=== PATIENT | female | born 1965 | race Caucasian/White ===

== ENCOUNTER → 2017-04-05 | Outpatient (CLI) | payer MEDICARE, OTHER ==
--- NOTE | 2017-04-05 08:18 | WOMENS IMAGING REPORT ---
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 TECHNIQUE: Dynamic and static grayscale images acquired of the abdomen and recorded on PACS. Additional selected color Doppler and spectral images recorded. LIMITATIONS: None. FINDINGS: PANCREAS: The pancreas was not well visualize. The visualized portions of the pancreatic head demonstrated no pancreatic masses. LIVER: Echotexture is coarse with increased echogenicity consistent with fatty infiltration. LIVER VASCULATURE: Normal directional flow of the main portal vein and hepatic veins. GALLBLADDER: Gallbladder was in a contracted state. No gallstones are identified. There is some thickening of the finnegan with apparent gallbladder polyps being identified. ULTRASOUND-DETECTED RITTER'S SIGN: Negative. INTRAHEPATIC DUCTS AND COMMON DUCT: CBD and intrahepatic ducts normal caliber. No filling defects. INFERIOR VENA CAVA: Normal flow. AORTA: No aneurysm. RIGHT KIDNEY: 11.1 cm in length. Normal echogenicity. No solid or suspicious masses. No hydronephrosis. No calcifications. LEFT KIDNEY: 11.6 cm in length. Normal echogenicity. No solid or suspicious masses. No hydronephrosis. No calcifications. SPLEEN:Normal size. No solid masses. PERITONEAL AND PLEURAL SPACES: No ascites or effusions. OTHER: No other significant finding. IMPRESSION: FATTY LIVER. No gallstones are identified. There is some thickening of the gallbladder wall with apparent gallbladder polyps. Other findings as noted above. TECHNICAL DOCUMENTATION: JOB ID: [id number] [employer]- All Rights Reserved <Electronically signed by VAMSI BROWN MD in OV> 04/05/17 0818 [facility]
--- NOTE | 2017-04-05 16:02 | WOMENS IMAGING REPORT ---
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 TECHNIQUE: Standard craniocaudal and mediolateral oblique views of the breast recorded using digital acquisition. LIMITATIONS: None. FINDINGS: BREAST: Right No masses, calcifications or architectural distortion. No areas of suspicion. Read with the assistance of CAD. .[facility] - R2 Cenova Version 1.3 .[facility] - R2 Cenova Version 1.3 .[facility] - R2 Cenova Version 2.4 .[facility] - R2 Cenova Version 2.4 .[facility] - R2 [employer] Version 9.2 IMPRESSION: NORMAL MAMMOGRAM. BIRADS 1. BREAST DENSITY: a. The breasts are almost entirely fatty. BIRAD: 1 NEGATIVE RECOMMENDATION: RECOMMENDATION: ROUTINE SCREENING. COMMENT: The patient has been notified of the results by letter per [place] requirements. Additional no tification policies are in place for contacting patient with suspicious or incomplete findings. Quality ID #225: The [employer] recommends an annual screening mammogram for women aged 40 years or over. This facility utilizes a reminder system to ensure that all patients receive reminder letters, and/or direct phone calls for appointments. This includes reminders for routine scr eening mammograms, diagnostic mammograms, or other Breast Imaging Interventions when appropriate. Th is patient will be placed in the appropriate reminder system. The [employer] (ACR) has developed recommendations for screening MRI of the breast s in certain patient populations, to be used in conjunction with mammography. Breast MRI surveillance may be appropriate for women with more than 20% lifetime risk of developing breast cancer as determi chicho by genetic testing, significant family history of the disease, or history of mantle radiation for Hodgkins Disease. ACR Practice Guidelines 2008. TECHNICAL DOCUMENTATION: FINDING NUMBER: (1) ASSESSMENT: (1) JOB ID: [id number] [employer]- All Rights Reserved
== END ==
LOC: WI 07:20
PROVIDERS: ATTEND Specialist
DX: Z12.31 Encounter for screening mammogram for malignant neoplasm of breast (principal); C50.512 Malignant neoplasm of lower-outer quadrant of left female breast; R10.11 Right upper quadrant pain
CPT/HCPCS: 76700; G0202

== ENCOUNTER 2017-04-10 01:14 | Observation (INO) | payer MEDICARE, OTHER ==
[2017-04-10] MEDS ORDERED: KETOROLAC TROMETHAMINE INJ/PF 30 MG/1 ML SDV IV ONE (01:55)
[2017-04-10] MEDS ORDERED: NORMAL SALINE 1000 ML 1,000 ML IV ONE (01:55)
[2017-04-10] MEDS ORDERED: MORPHINE SULFATE 10 MG/ML INJ IV ONE (01:55)
[2017-04-10] MEDS ORDERED: ONDANSETRON HCL INJ/PF 4 MG/2 ML SDV IV ONE (01:55)
--- NOTE | 2017-04-10 01:58 | ER Document Report ---
ED General - General Chief Complaint: Epigastric pain, nausea Stated Complaint: CHEST PAIN Time Seen by Provider: 04/10/17 01:43 Notes: Patient is a 52-year-old female who comes emergency department for chief complaint of pain in her upper abdomen and 2 episodes of vomiting. Pain started at 10 PM tonight. She states she has had these symptoms intermittently for the past 4 months but tonight was significantly worse. She had an ultrasound outpatient but this has not been resulted yet. She ate salmon for dinner. Past medical history of left mastectomy, orthopedic surgeries, ankylosing spondylitis. She denies alcohol. TRAVEL OUTSIDE OF THE [place] IN LAST 30 DAYS: No - Related Data Allergies/Adverse Reactions: Sulfa (Sulfonamide Antibiotics) Allergy (Mild, Verified 04/10/17 05:32) Past Medical History - General Information source: Patient - Social History Smoking Status: Current Every Day Smoker Frequency of alcohol use: Occasional Lives with: Family Family History: Reviewed & Not Pertinent Renal/ Medical History: Denies: Hx Peritoneal Dialysis Musculoskeltal Medical History: Reports Other - Ankylosing spondylitis Past Surgical History: Reports: Hx Gynecologic Surgery - Tubal ligation, Hx Mastectomy - Left-sided, Hx Orthopedic Surgery - Immunizations Hx Diphtheria, Pertussis, Tetanus Vaccination: Yes Review of Systems - Review of Systems Constitutional: No symptoms reported EENT: No symptoms reported Cardiovascular: No symptoms reported Respiratory: No symptoms reported Gastrointestinal: See HPI Genitourinary: No symptoms reported Female Genitourinary: No symptoms reported Musculoskeletal: No symptoms reported Skin: No symptoms reported Hematologic/Lymphatic: No symptoms reported Neurological/Psychological: No symptoms reported Physical Exam - Vital signs Vitals: Pulse Resp BP Pulse Ox 68 16 115/70 99 04/10/17 05:00 04/10/17 05:00 04/10/17 05:00 04/10/17 05:00 Interpretation: Normal - General General appearance: Alert, Anxious In distress: Mild - Patient appears to be in some pain - HEENT Head: Normocephalic, Atraumatic Eyes: Normal Pupils: PERRL - Respiratory Respiratory status: No respiratory distress Chest status: Nontender Breath sounds: Normal Chest palpation: Normal - Cardiovascular Rhythm: Regular. No: Tachycardia Heart sounds: Normal auscultation, S1 appreciated, S2 appreciated Murmur: No - Abdominal Inspection: Normal Distension: No distension Bowel sounds: Normal Tenderness: Tender - Very tender in the right upper quadrant with positive Whitaker sign and guarding, there is also epigastric pain, remaining abdomen is benign Organomegaly: No organomegaly - Back Back: Normal, Nontender. No: Tender - Extremities General upper extremity: Normal inspection, Nontender, Normal color, Normal ROM , Normal temperature General lower extremity: Normal inspection, Nontender, Normal color, Normal ROM , Normal temperature, Normal weight bearing. 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 However patient has symptoms and examination concerning for acute cholecystitis. Ultrasound was performed, shows gallbladder sludge, trace pericholecystic fluid and some wall thickening. No obstructive abnormality. Patient is much more comfortable after medications. Discussed with Micaela. 04/10/17 04:[address] Zapata, surgeon donor relations coordinator, he will evaluate the patient. Patient will be admitted to the surgical floor, given Unasyn, patient has been kept n.p.o., continuing IV fluids. Patient states understanding and agreement. - Vital Signs Vital signs: Temp Pulse Resp BP Pulse Ox 68 16 115/70 99 04/10/17 05:00 04/10/17 05:00 04/10/17 05:00 04/10/17 05:00 - Laboratory Result Diagrams: 04/10/17 03:35 04/10/17 03:35 Laboratory results interpreted by me: 04/10/17 04/10/17 04/10/17 02:40 03:35 03:35 Hgb 11.4 L Hct 34.2 L RDW 17.0 H Plt Count 144 L Chloride 114 H Carbon Dioxide 20 L BUN 26 H Total Protein 5.5 L Albumin 3.1 L Urine Ketones 20 H Urine Blood SMALL H Discharge - Discharge Clinical Impression: Cholecystitis, Upper abdominal pain Vomiting Qualifiers: Vomiting type: unspecified Vomiting Intractability: non-intractable Nausea presence: with nausea Qualified Code(s): R11.2 - Nausea with vomiting, unspecified Condition: Stable Disposition: ADMITTED INPATIENT Admitting Provider: Surgicalist Unit Admitted: Surgical Floor
[2017-04-10 03:47] LABS: AMORPHOUS SEDIMENT,URINE TRACE /HPF; APPEARANCE,URINE SLIGHTLY-CLOUDY; BILIRUBIN,URINE NEGATIVE (NEGATIVE); GLUCOSE, URINE NEGATIVE (NEGATIVE); KETONES,URINE 20 mg/dL (NEGATIVE); LEUKOCYTE ESTERASE,URINE NEGATIVE (NEGATIVE); NITRITE,URINE NEGATIVE (NEGATIVE); PROTEIN,URINE NEGATIVE (NEGATIVE); URINE SPECIFIC GRAVITY 1.018; UROBILINOGEN,URINE NEGATIVE mg/dL (<2.0)
[2017-04-10 03:53] LABS: ABSOLUTE EOSINOPHILS # (AUTO) 0.2 10^3/uL (0.0-0.6); ABSOLUTE LYMPHOCYTES (AUTO) 1.3 10^3/uL (0.5-4.7); ABSOLUTE MONOCYTES (AUTO) 0.4 10^3/uL (0.1-1.4); ABSOLUTE NEUT (AUTO) 4.4 10^3/uL (1.7-8.2); BASOPHILS % (AUTO) 0.6 % (0-2); EOSINOPHILS % (AUTO) 2.8 % (0-6); HEMATOCRIT 34.2 % (36.0-47.0); HEMOGLOBIN 11.4 g/dL (12.0-15.5); LYMPHOCYTES % (AUTO) 20.2 % (13-45); MEAN CORPUSCULAR HGB CONC 33.3 g/dL (32.0-36.0); MEAN CORPUSCULAR VOLUME 84 fl (80-97); MONOCYTES % (AUTO) 6.8 % (3-13); RED BLOOD COUNT 4.07 10^6/uL (3.72-5.28); SEGMENTED NEUTROPHILS % (AUTO) 69.6 % (42-78); WHITE BLOOD COUNT 6.3 10^3/uL (4.0-10.5)
--- NOTE | 2017-04-10 03:57 | RADIOLOGY REPORT (SQ) ---
EXAM DESCRIPTION: U/S ABDOMEN LIMITED W/O DOP COMPLETED DATE/TIME: 04/10/2017 3:29 am REASON FOR STUDY: RUQ and epigastric pain,vomiting COMPARISON: Abdominal ultrasound 04/05/2017. TECHNIQUE: Dynamic and static grayscale images acquired of the right upper quadrant and recorded on PACS. Additional selected color Doppler and spectral images recorded. LIMITATIONS: Study limited due to acoustical interference from fat or from air in the bowel. FINDINGS: PANCREAS: Obscured by overlying bowel gas. LIVER: Measures 15 cm. Echotexture is coarse with increased echogenicity consistent with fatty infil tration. LIVER VASCULATURE: Normal directional flow of the main portal vein. GALLBLADDER: Echogenic mobile focus, nonshadowing, suggestive of sludge. There is mild gallbladder w all thickening to 3.7 mm. There is trace pericholecystic fluid. ULTRASOUND-DETECTED RITTER'S SIGN: The patient was given pain medication prior to the exam. INTRAHEPATIC DUCTS AND COMMON DUCT: CBD and intrahepatic ducts normal caliber. INFERIOR VENA CAVA: Not well visualized. AORTA: No aneurysm in the visualized proximal and mid abdominal aorta. The distal abdominal aorta wa s obscured by overlying bowel gas. RIGHT KIDNEY: Measures 11.6 cm in length. Normal echogenicity. No hydronephrosis. No calcificat ions. PERITONEAL CAVITY AND RIGHT PLEURAL SPACE: No ascites or effusion. IMPRESSION: Gallbladder sludge. Mild gallbladder wall thickening and trace pericholecystic fluid, n onspecific. If clinical concern persists for acute or chronic cholecystitis, evaluation with hepatob iliary scan can be obtained. Fatty infiltration of the liver. TECHNICAL DOCUMENTATION: JOB ID: [id number] [place]-[id number] [employer])- All Rights Reserved
[2017-04-10 04:07] LABS: ALANINE AMINOTRANSFERASE 28 U/L (9-52); ALBUMIN 3.1 g/dL (3.5-5.0); ALKALINE PHOSPHATASE 84 U/L (38-126); ANION GAP 7 (5-19); ASPARTATE AMINO TRANSFERASE 15 U/L (14-36); BILIRUBIN,DIRECT 0.3 mg/dL (0.0-0.4); BILIRUBIN,TOTAL 0.3 mg/dL (0.2-1.3); BLOOD UREA NITROGEN 26 mg/dL (7-20); CALCIUM 8.4 mg/dL (8.4-10.2); CARBON DIOXIDE 20 mmol/L (22-30); CHLORIDE 114 mmol/L (98-107); CREATININE RESULT 0.71 mg/dL (0.52-1.25); GLUCOSE 86 mg/dL (75-110); LIPASE 116.4 U/L (23-300); POTASSIUM 3.8 mmol/L (3.6-5.0); SODIUM 141.1 mmol/L (137-145); TOTAL PROTEIN 5.5 g/dL (6.3-8.2)
[2017-04-10] MEDS ORDERED: AMPICILLIN SOD/SULBACTAM 3 GM VIAL IV ONE (04:15)
[2017-04-10] MEDS ORDERED: NORMAL SALINE 1000 ML 1,000 ML IV PRN ×2 (04:16→12:29)
[2017-04-10] MEDS ORDERED: NICOTINE 14 MG/24 HR PATCH.TD24 TD ONE (04:19)
--- NOTE | 2017-04-10 04:57 | PDOC H&P ---
History of Present Illness Admission Date/PCP: EDWIN HESTER MD Patient complains of: episodes of right upper quadrant pain History of Present Illness: MELISSA ARREDONDO is a 52 year old female with hx of HTN, anchilosing dpondylitis , migraine who come to the Er with a c/o of 4 months of epigastric and right uppr quadrant pain, nausea, vomit x 2 tonight. Work-up done in the ER today shows a liver US with sludge and her physical exam is significant for right upper quadrant pain. Past Medical History Cardiac Medical History: Reports: Hypertension Neurological Medical History: Reports: Migraine Musculoskeltal Medical History: Reports: Other - anchilosing spondylitis Past Surgical History Past Surgical History: Reports: Appendectomy, Mastectomy - LEFT, Orthopedic Surgery - R ARM, Tonsillectomy Social History Smoking Status: Current Every Day Smoker Family History Parental Family History Reviewed: Yes - negative Children Family History Reviewed: Unknown Sibling(s) Family History Reviewed.: Yes - negative Physical Exam Vital Signs: Intake & Output 04/08/17 04/09/17 04/10/17 06:59 06:59 06:59 Weight 10 kg General appearance: PRESENT: no acute distress Head exam: PRESENT: atraumatic Respiratory exam: PRESENT: clear to auscultation patricia, other - left mastectomy Cardiovascular exam: PRESENT: RRR GI/Abdominal exam: PRESENT: Whitaker's sign, soft, tenderness - right upper quadrant Musculoskeletal exam: PRESENT: full ROM Neurological exam: PRESENT: alert Results Laboratory Results: 04/10/17 03:35 04/10/17 03:35 04/10/17 04/10/17 04/10/17 02:40 03:35 03:35 WBC 6.3 RBC 4.07 Hgb 11.4 L Hct 34.2 L MCV 84 MCH 28.0 MCHC 33.3 RDW 17.0 H Plt Count 144 L Seg Neutrophils % 69.6 Lymphocytes % 20.2 Monocytes % 6.8 Eosinophils % 2.8 Basophils % 0.6 Absolute Neutrophils 4.4 Absolute Lymphocytes 1.3 Absolute Monocytes 0.4 Absolute Eosinophils 0.2 Absolute Basophils 0.0 Sodium 141.1 Potassium 3.8 Chloride 114 H Carbon Dioxide 20 L Anion Gap 7 BUN 26 H Creatinine 0.71 Est GFR ( Amer) > 60 Est GFR (Non-Af Amer) > 60 Glucose 86 Calcium 8.4 Total Bilirubin 0.3 AST 15 ALT 28 Alkaline Phosphatase 84 Total Protein 5.5 L Albumin 3.1 L Lipase 116.4 Urine Color YELLOW Urine Appearance SLIGHTLY-CLOUDY Urine pH 6.0 Ur Specific [place] 1.018 Urine Protein NEGATIVE Urine Glucose (UA) NEGATIVE Urine Ketones 20 H Urine Blood SMALL H Urine Nitrite NEGATIVE Ur Leukocyte Esterase NEGATIVE Urine WBC (Auto) 1 Urine RBC (Auto) 4 Impressions: Abdomen Ultrasound 04/10/17 01:55 IMPRESSION: Gallbladder sludge. Mild gallbladder wall thickening and trace pericholecystic fluid, nonspecific. If clinical concern persists for acute or chronic cholecystitis, evaluation with hepatobiliary scan can be obtained. Fatty infiltration of the liver. Assessment & Plan - Plan Summary Plan Summary: Assessment: Right upper quadrant abdominal pain with nausea, emesis US GB significant for sludge and thickening o gallbladder wall Physical exam significant for RUQ pain Blood work normal Plan: Admit NPO IV fluids Pain control Plan laparoscopic appendectomy, possible open, possible cholangiogram Procedure, risks, benefits, complications including bleeding from the liver and or injury of the common bile duct requiring transfer to a tertiary center for open repair has been explained to the patient, she understands all the above, and decides to proceed.
[2017-04-10] MEDS ORDERED: NORMAL SALINE 1,000 ML IV PRN (06:44)
[2017-04-10] MEDS ORDERED: GLUCAGON,HUMAN RECOMB 1 MG INJ SUBCUT PRN (06:44)
[2017-04-10] MEDS ORDERED: DEXTROSE 50%-WATER 25 GM/50 ML DISP.SYRIN IV PRN ×2 (06:44)
[2017-04-10] MEDS ORDERED: ONDANSETRON HCL INJ/PF 4 MG/2 ML SDV IV PRN ×2 (06:44→10:10)
[2017-04-10] MEDS ORDERED: DEXTROSE 40% GEL 15 GM TUBE PO PRN ×2 (06:44)
[2017-04-10] MEDS ORDERED: MORPHINE SULFATE 10 MG/ML INJ IV PRN ×2 (06:44→10:10)
[2017-04-10] MEDS ORDERED: BUPIVACAINE HCL 0.5%-EPI 1:200000 INJ/PF 30 ML VIAL ONE (06:59)
[2017-04-10] MEDS ORDERED: LIDOCAINE 1% INJ-PF (10 MG/ML) 30 ML SDV ONE (06:59)
[2017-04-10] MEDS ORDERED: FENTANYL CITRATE INJ/PF 250 MCG/5 ML AMPULE ONE (09:18)
[2017-04-10] MEDS ORDERED: MIDAZOLAM 2 MG/2 ML INJ ONE (09:18)
[2017-04-10] MEDS ORDERED: DEXAMETHASONE SOD PHOSPHATE INJ 4 MG/1 ML VIAL ONE (09:18)
[2017-04-10] MEDS ORDERED: ONDANSETRON HCL INJ/PF 4 MG/2 ML SDV ONE ×2 (09:18→13:06)
[2017-04-10] MEDS ORDERED: LIDOCAINE 2% INJ-PF (20 MG/ML) 10 ML AMPUL ONE (09:18)
[2017-04-10] MEDS ORDERED: PROPOFOL INJ 200 MG/20 ML VIAL IV ONE (09:19)
[2017-04-10] MEDS ORDERED: ACETAMINOPHEN 100 ML IV ONE (09:19)
[2017-04-10] MEDS ORDERED: CEFOXITIN 1 GM/D5W RTU 1 GM/50 ML RTUPB IV SCH (10:00)
[2017-04-10] MEDS ORDERED: PROMETHAZINE HCL INJ 25 MG/1 ML VIAL IV PRN ×2 (10:10)
[2017-04-10] MEDS ORDERED: DIPHENHYDRAMINE HCL 50 MG/ML VIAL IV PRN (10:10)
[2017-04-10] MEDS ORDERED: OXYCODONE-ACETAMINOPHEN 5-325 MG TABLET PO PRN ×2 (10:10)
[2017-04-10] MEDS ORDERED: FENTANYL CITRATE INJ/PF 100 MCG/2 ML AMPUL IV PRN ×3 (10:10)
[2017-04-10] MEDS ORDERED: MEPERIDINE HCL/PF INJ 25 MG/1 ML DISP.SYRIN IV PRN (10:10)
[2017-04-10] MEDS: FENTANYL CITRATE INJ/PF 100 MCG/2 ML AMPUL ONE ×2 (12:18→12:23)
--- NOTE | 2017-04-10 12:29 | Operative Report ---
Operative Report DATE OF SURGERY: 04/10/17 Operative Report: Laparoscopic cholecystectomy PREOPERATIVE DIAGNOSIS: Symptomatic cholelithiasis. Cholecystitis POSTOPERATIVE DIAGNOSIS: Symptomatic cholelithiasis. Chronic cholecystitis OPERATION: laparoscopic cholecystectomy SURGEON: KARLIE VERONICA ANESTHESIA: Local TISSUE REMOVED OR ALTERED: gallbladder COMPLICATIONS: none ESTIMATED BLOOD LOSS: 120 mL INTRAOPERATIVE FINDINGS: chronic cholecystitis PROCEDURE: see dictation
--- NOTE | 2017-04-10 12:51 | OPERATIVE REPORT E ---
Operative Report NAME: MELISSA ARREDONDO : 1965 AGE: 52Y DATE OF SURGERY: 04/10/2017 ROOM: 431 PREOPERATIVE DIAGNOSIS: Acute appendicitis. POSTOPERATIVE DIAGNOSES: 1. Normal appendix. 2. Dermoid cyst of the right ovary. PROCEDURES: 1. Laparoscopic appendectomy. 2. Diagnostic laparoscopy. SURGEON: KARLIE VERONICA M.D. SENIOR CONTRACTS ADMINISTRATOR: Dr. Bond from [facility]. COMPLICATIONS: None. ANESTHESIA: General. FLUIDS: 1200. BLOOD LOSS: Negligible, less than 10 mL. COMPLICATIONS: None. DRAINS: None. URINE OUTPUT: Monitored. INDICATION AND FINDINGS: This is a healthy 52-year-old female with a DICTATING PHYSICIAN: KARLIE VERONICA M.D. [id number] PHY#: [id number] ID: [id number] JOB#: [id number] ACCT: [id number] cc:KARLIE VERONICA M.D. > MTDD
[2017-04-10] MEDS: MORPHINE SULFATE 10 MG/ML INJ IV PRN ×3 (13:50→22:17)
--- NOTE | 2017-04-10 13:58 | OPERATIVE REPORT E ---
Operative Report NAME: MELISSA ARREDONDO : 1965 AGE: 52Y DATE OF SURGERY: 04/10/2017 ROOM: 431 PREOPERATIVE DIAGNOSES: 1. Symptomatic cholelithiasis. 2. Right upper quadrant pain. 3. Cholecystitis. POSTOPERATIVE DIAGNOSES: 1. Symptomatic cholelithiasis. 2. Right upper quadrant pain. 3. Chronic cholecystitis. PROCEDURE: 1. Laparoscopic cholecystectomy. SURGEON: KARLIE VERONICA M.D. COMMUNITY SERVICE AIDE: None. BLEEDIN mL. FLUIDS: 1500. COMPLICATIONS: None. ANESTHESIA: General plus 30 mL of 0.25% Marcaine with epinephrine. DRAINS: One 2 mm Mickey drain. URINE OUTPUT: Not monitored. INDICATIONS AND FINDINGS: This is a 52-year-old female who presented to the emergency room with a history of right upper quadrant pain, intense nausea and emesis. An ultrasound was found to reveal the presence of gallbladder sludge and thickening of the gallbladder wall. The decision was made to take the patient to surgery for laparoscopic cholecystectomy, possible open, possible cholangiogram. The procedure, risks, benefits, and complications were explained to the patient. She understood all the above, including possible bleeding from the liver and/or injury to the common bile duct which may require transfer to a tertiary center for repair. She understands all the above, her questions answered, and she decided to proceed. DESCRIPTION OF PROCEDURE: The patient was taken to the operating room. The patient was positioned in a supine position. General anesthesia was induced by endotracheal intubation. Abdomen prepped and draped in the usual fashion. An incision was made just above the umbilicus. The peritoneal cavity was entered. We examined with the port, an Optiview adapter and 5-mm scope. The CO2 pneumoperitoneum was then obtained. Under direct visualization an 11-mm port and two 5-mm ports were placed in the epigastrium and right upper quadrant. The gallbladder was identified, elevated and retroflexed. The gallbladder neck was then grasped, pulled anterior toward the patient's right to expose the triangle of Calot. The hook cautery was then utilized to divide the peritoneal attachments medially and laterally off the gallbladder neck so as to disconnect this from the gallbladder fossa. The dissection of the peritoneum was then continued along the cystic neck and cystic duct so as to evaluate and identify the cystic duct and the cystic artery. The cystic duct was then doubly clipped proximally and distally and divided with scissors. The cystic artery was identified, doubly clipped proximally and distally, and divided with scissors. However, following this a small amount of bleeding was noted from the proximal stump of the cystic artery and from the liver itself, and clips were applied to stop the bleeding, which was then controlled. The gallbladder was then dissected from the liver bed with a hook cautery and extracted from the peritoneal cavity with an Endobag. The CO2 pneumoperitoneum was re-established. Upon examination of the liver bed, 2 bleeders from the liver bed were identified, and these were cauterized with Bovie at high settings. In addition, a fair amount of blood was noted around the liver coming from the more distal part of the gallbladder fossa at the level of the hilum of the liver, and active bleeding was then noted. This was controlled initially by the application of a sponge and then the blood clot was suctioned enough to the extent that the bleeding was clearly identified and was controlled with the application of 5-mm clips. The area was then irrigated multiple times until no active bleeding was noted. Following this, 10 mL of FloSeal were applied to the area of bleeding as well as 2 large pieces of Surgicel. A 10-mm drain was inserted through the epigastric port, inserted from the right upper quadrant port site and placed in the gallbladder fossa and secured to the skin with a 2-0 nylon suture. A fascial closure device was then utilized to place a [id number] 0-Vicryl sutures to close the umbilical fascial defect, the suture was left untied. The area of the cystic artery stump was then examined again after 10 minutes with no active bleeding noted. At this point all instruments were removed. The CO2 pneumoperitoneum was released. The fascial defect at the umbilicus was closed with the [id number] 0-Vicryl suture previously placed. The skin incisions were closed with 4-0 Vicryl sutures subcuticular and Dermabond applied. The patient tolerated the procedure well, extubated, transferred to the recovery room in satisfactory condition. DICTATING PHYSICIAN: KARLIE VERONICA M.D. [id number] PHY#: [id number] ID: [id number] JOB#: [id number] ACCT: [id number] cc:KARLIE VERONICA M.D. > [facility]PITALJason
[2017-04-10] MEDS ORDERED: CEFOXITIN INJ 1 GM VIAL IV SCH (14:00)
[2017-04-10] MEDS ORDERED: NEOSTIGMINE METHYLSULFATE 10 MG/10 ML VIAL ONE (14:41)
[2017-04-10] MEDS ORDERED: GLYCOPYRROLATE INJ 0.4 MG/2 ML VIAL ONE (14:41)
[2017-04-10] MEDS ORDERED: SUCCINYLCHOLINE CHLORIDE INJ 200 MG/10 ML VIAL ONE (14:41)
[2017-04-10] MEDS ORDERED: VECURONIUM BROMIDE INJ 10 MG VIAL IV ONE (14:41)
[2017-04-10] MEDS: ONDANSETRON HCL INJ/PF 4 MG/2 ML SDV IV PRN (17:37)
[2017-04-10] MEDS ORDERED: PANTOPRAZOLE SODIUM 40 MG VIAL IV SCH (18:00)
[2017-04-10] MEDS: WATER IV SCH (18:33)
[2017-04-10] MEDS: DEXTROSE 5% IV SCH (18:33)
[2017-04-10] MEDS: CEFOXITIN SODIUM IV SCH (18:33)
[2017-04-11] MEDS: MORPHINE SULFATE 10 MG/ML INJ IV PRN ×3 (00:38→06:37)
[2017-04-11] MEDS: WATER IV SCH ×2 (02:41→13:09)
[2017-04-11] MEDS: CEFOXITIN SODIUM IV SCH ×2 (02:41→13:09)
[2017-04-11] MEDS: DEXTROSE 5% IV SCH ×2 (02:41→13:09)
[2017-04-11 05:41] LABS: ABSOLUTE LYMPHOCYTES (AUTO) 1.6 10^3/uL (0.5-4.7); ABSOLUTE MONOCYTES (AUTO) 0.8 10^3/uL (0.1-1.4); ABSOLUTE NEUT (AUTO) 10.3 10^3/uL (1.7-8.2); BASOPHILS % (AUTO) 0.3 % (0-2); EOSINOPHILS % (AUTO) 0.2 % (0-6); HEMOGLOBIN 12.9 g/dL (12.0-15.5); HGB HCT DIFFERENCE -0.3; LYMPHOCYTES % (AUTO) 12.3 % (13-45); MEAN CORPUSCULAR VOLUME 85 fl (80-97); RED CELL DISTRIBUTION WIDTH 17.3 % (11.5-14.0); SEGMENTED NEUTROPHILS % (AUTO) 81.2 % (42-78); WHITE BLOOD COUNT 12.6 10^3/uL (4.0-10.5)
[2017-04-11 06:01] LABS: ALANINE AMINOTRANSFERASE 50 U/L (9-52); ALBUMIN 4.1 g/dL (3.5-5.0); ALKALINE PHOSPHATASE 119 U/L (38-126); ANION GAP 11 (5-19); ASPARTATE AMINO TRANSFERASE 48 U/L (14-36); BILIRUBIN,DIRECT 0.4 mg/dL (0.0-0.4); BILIRUBIN,TOTAL 0.6 mg/dL (0.2-1.3); BLOOD UREA NITROGEN 13 mg/dL (7-20); CALCIUM 9.3 mg/dL (8.4-10.2); CARBON DIOXIDE 19 mmol/L (22-30); CHLORIDE 112 mmol/L (98-107); CREATININE RESULT 0.69 mg/dL (0.52-1.25); GLUCOSE 100 mg/dL (75-110); POTASSIUM 4.6 mmol/L (3.6-5.0)
[2017-04-11 08:00] VITALS: BP 115/59
[2017-04-11] MEDS: ONDANSETRON HCL INJ/PF 4 MG/2 ML SDV IV PRN (08:54)
--- NOTE | 2017-04-11 11:32 | PDOC PROGRESS REPORT ---
Subjective Progress Note for:: 04/11/17 Subjective:: patient comfortable, tolerating po well, minimal incisional pain Physical Exam Vital Signs: Temp Pulse Resp BP Pulse Ox 98.1 F 69 16 115/59 L 98 04/11/17 08:00 04/11/17 08:00 04/11/17 08:00 04/11/17 08:00 04/11/17 08:00 Intake & Output 04/10/17 04/11/17 04/12/17 06:59 06:59 06:59 Intake Total 7830 Output Total 4970 Balance 2860 Weight 104.3 kg Respiratory exam: PRESENT: clear to auscultation patricia Cardiovascular exam: PRESENT: RRR GI/Abdominal exam: PRESENT: normal bowel sounds - incisin clean, dry, intact; SERAFIN in the right upper quadrant with serosanguionous fluid, soft Results Laboratory Results: 04/11/17 04:58 04/11/17 04:58 04/11/17 04/11/17 04:58 04:58 WBC 12.6 H RBC 4.60 Hgb 12.9 Hct 39.0 MCV 85 MCH 28.0 MCHC 33.0 RDW 17.3 H Plt Count 203 Seg Neutrophils % 81.2 H Lymphocytes % 12.3 L Monocytes % 6.0 Eosinophils % 0.2 Basophils % 0.3 Absolute Neutrophils 10.3 H Absolute Lymphocytes 1.6 Absolute Monocytes 0.8 Absolute Eosinophils 0.0 Absolute Basophils 0.0 Sodium 142.0 Potassium 4.6 Chloride 112 H Carbon Dioxide 19 L Anion Gap 11 BUN 13 Creatinine 0.69 Est GFR ( Amer) > 60 Est GFR (Non-Af Amer) > 60 Glucose 100 Calcium 9.3 Total Bilirubin 0.6 AST 48 H ALT 50 Alkaline Phosphatase 119 Total Protein 7.0 Albumin 4.1 Impressions: Abdomen Ultrasound 04/10/17 01:55 IMPRESSION: Gallbladder sludge. Mild gallbladder wall thickening and trace pericholecystic fluid, nonspecific. If clinical concern persists for acute or chronic cholecystitis, evaluation with hepatobiliary scan can be obtained. Fatty infiltration of the liver. Assessment & Plan - Plan Summary Plan Summary: A/ POD #1 after laparoscopic cholecystectomy secondary to chronic cholecystitis with cholelithiasis Vital sign stable SERAFIN output 10 cc overnight blood work (CBC and CMP) normal Patient tolerating po well Physical exam unremarkable P/ Remove SERAFIN drain today Discharge to home today f/u in the Surgery Clinic within 1 week can shower in AM 04/12/17, bathe in 2 weeks regular diet activities as tolerated no would care needed Tylenol / Aleve prn for pain
--- NOTE | 2017-04-11 12:54 | DISCHARGE SUMMARY E ---
Discharge Summary NAME: MELISSA ARREDONDO : 1965 AGE: 52Y ADMITTED: 04/10/2017 DISCHARGED: 04/11/2017 FINAL DIAGNOSES: 1. Right upper quadrant pain. 2. Epigastric pain. 3. Chronic cholecystitis secondary to cholelithiasis. 4. Ankylosing spondylitis. 5. Hypertension. 6. Migraines. PROCEDURE: On April 10, 2017, the patient underwent laparoscopic cholecystectomy. COMPLICATIONS: None. HOSPITAL COURSE: This is a 52-year-old obese female with a history of seizures and ankylosing spondylitis as well as hypertension who presented to the emergency room with a history of right upper quadrant pain and epigastric pain. Workup was done and revealed the patient had cholelithiasis and thickening of the gallbladder wall on US. The patient was therefore taken to surgery the same day. She underwent laparoscopic cholecystectomy. Procedure was uneventful. The patient was then transferred to the third floor. During the hospitalization the vital signs remained stable and her diet was advanced to regular. On day of discharge the patient had minimal complaints. No nausea or vomiting, her blood work within normal limits including CBC and a complete metabolic profile. On physical exam, the abdomen was soft. The wound incision was clean, dry and intact. The patient had a Tao Benton drain which drained only 10 mL overnight and was removed on the morning of discharge. The patient has a followup appointment in the office in about a week. She was instructed to shower the following day on April 12 and to bathe only 2 weeks after surgery. She was instructed to follow regular diet, activity as tolerated, no wound care needed. She was instructed to resume all of her home medications. The patient was given Tylenol and Aleve p.r.n. for pain. DICTATING PHYSICIAN: KARLIE VERONICA M.D. [id number] PHY#: [id number] ID: [id number] JOB#: [id number] ACCT: [id number] cc:Andrea BECKER PA > MTDD
[2017-04-11] MEDS ORDERED: LISINOPRIL 10 MG TABLET PO ONE (13:00)
[2017-04-11] MEDS ORDERED: PRENATAL VITAMIN W-O CA NO5/FE FUMARATE/FA CAPSULE PO ONE (13:00)
[2017-04-11] MEDS ORDERED: OXYCODONE HCL IR 5 MG TABLET PO SCH (18:00)
[2017-04-11] MEDS ORDERED: (PENDING PHARMACY ID) (Sulindac [Sulindac] 150 MG) PO SCH (18:00)
[2017-04-11] MEDS ORDERED: CLONAZEPAM 1 MG TABLET PO SCH (18:00)
[2017-04-11] MEDS ORDERED: TIZANIDINE HCL 4 MG TABLET PO SCH (18:00)
[2017-04-11] MEDS ORDERED: TOPIRAMATE 25 MG TABLET PO SCH (22:00)
[2017-04-12] MEDS ORDERED: [UNRECOGNIZED DRUG - REMARK] PO SCH (10:00)
[2017-04-12] MEDS ORDERED: (PENDING PHARMACY ID) (Lisinopril [Zestril] 20 MG) PO SCH (10:00)
[2017-04-12] MEDS ORDERED: PRENATAL VITAMIN W-O CA NO5/FE FUMARATE/FA CAPSULE PO SCH (10:00)
[2017-04-12] MEDS ORDERED: LISINOPRIL 10 MG TABLET PO SCH (10:00)
== END 2017-04-11 12:00 | disposition home or self-care (01) ==
LOC: ER 01:14 → UNDOADMIN 05:06 → EH 05:06 → INTOOBSV 06:44 → 4S 06:44 → EH 07:33 → 4S 07:33
PROVIDERS: ATTEND Surgery
PROC: 0FT44ZZ Resection of Gallbladder, Percutaneous Endoscopic Approach (ICD-10-PCS; principal; 2017-04-10 09:15)
DX: R10.11 Right upper quadrant pain (principal); R10.13 Epigastric pain; K81.1 Chronic cholecystitis; M45.9 Ankylosing spondylitis of unspecified sites in spine; G43.909 Migraine, unspecified, not intractable, without status migrainosus; I10 Essential (primary) hypertension; E66.9 Obesity, unspecified; F17.200 Nicotine dependence, unspecified, uncomplicated; K76.0 Fatty (change of) liver, not elsewhere classified; Z90.49 Acquired absence of other specified parts of digestive tract; Z68.35 Body mass index [BMI] 35.0-35.9, adult
CPT/HCPCS: 47562; 99285; 96361; 96374; 96375; 36415 ×2; 87040; 83690; 85025 ×2; 81025; 80053 ×2; 81001; 88304 ×2; 76705; G0378 ×3; J2250; J3490 ×4; J1100; J0694 ×2; J3010 ×2; J0295; J1885; J2270 ×2; C9113; J0330; J2405 ×2; J7030; J2704; J0131; 790; S0164

== ENCOUNTER → 2018-05-02 | Outpatient (CLI) | payer MEDICARE ==
--- NOTE | 2018-05-02 16:42 | WOMENS IMAGING REPORT ---
EXAM DESCRIPTION: 3D SCREENING MAMMO RIGHT COMPLETED DATE/TIME: 05/02/2018 10:25 am REASON FOR STUDY: SCREENING MAMMO Z12.31 ENCNTR SCREEN MAMMOGRAM FOR MALIGNANT NEOPLASM OF FLAKO COMPARISON: 2017 TECHNIQUE: Standard craniocaudal and mediolateral oblique views of the breast recorded using digital acquisition and breast tomosynthesis. LIMITATIONS: None. FINDINGS: BREAST: right No masses, calcifications or architectural distortion. No areas of suspicion. Read with the assistance of CAD. .[facility] - R2 Cenova Version 1.3 .[facility] Imaging - R2 Cenova Version 1.3 .[facility] Imaging - R2 Cenova Version 2.4 .[facility] - R2 Cenova Version 2.4 .[facility] - R2 Microelectronics Engineer Version 9.2 IMPRESSION: NORMAL MAMMOGRAM. BIRADS 1. BREAST DENSITY: b. There are scattered areas of fibroglandular density. BIRAD: 1 Negative RECOMMENDATION: RECOMMENDATION: ROUTINE SCREENING. COMMENT: The patient has been notified of the results by letter per SA requirements. Additional no tification policies are in place for contacting patient with suspicious or incomplete findings. Quality ID #[id number]: The [employer] recommends an annual screening mammogram for women aged 40 years or over. This facility utilizes a reminder system to ensure that all patients receive reminder letters, and/or direct phone calls for appointments. This includes reminders for routine scr eening mammograms, diagnostic mammograms, or other Breast Imaging Interventions when appropriate. Th is patient will be placed in the appropriate reminder system. The [employer] (ACR) has developed recommendations for screening MRI of the breast s in certain patient populations, to be used in conjunction with mammography. Breast MRI surveillance may be appropriate for women with more than 20% lifetime risk of developing breast cancer as determi chicho by genetic testing, significant family history of the disease, or history of mantle radiation for Hodgkins Disease. ACR Practice Guidelines 2008. DBT Technology DBT is a type of tomographic mammography. With conventional mammography, overlapping breast tissue ma y make lesions difficult to detect, even with good compression. DBT uses an x-ray tube that rotates a round the breast, taking images at different angles. These images are then combined to create thin sl ices of the breast that the radiologist can view as a 3D reconstruction. The [employer] unit can perform full-field digital mammograms (2D imaging); or DBT (3D imaging); or both, in a combination mode that quickly performs both the mammogram and the tomosynthesis scan while the breast is still compressed. PQRS 6045F: Fluoroscopic imaging is not utilized for breast tomosynthesis. TECHNICAL DOCUMENTATION: FINDING NUMBER: (1) ASSESSMENT: (1) JOB ID: [id number] [employer]- All Rights Reserved Reading location - IP/workstation name: [facility]
== END ==
LOC: WI 10:05
PROVIDERS: ATTEND Internal Medicine Hematology & Oncology
DX: Z12.31 Encounter for screening mammogram for malignant neoplasm of breast (principal)

== ENCOUNTER → 2019-09-05 | Outpatient (CLI) | payer MEDICARE ==
--- NOTE | 2019-09-05 11:37 | WOMENS IMAGING REPORT ---
EXAM DESCRIPTION: 3D SCREENING MAMMO RIGHT COMPLETED DATE/TIME: 09/05/2019 11:17 am REASON FOR STUDY: Z12.31 SCREENING MAMMO Z12.31 ENCNTR SCREEN MAMMOGRAM FOR MALIGNANT NEOPLASM OF B RE COMPARISON: 2017 EXAM PARAMETERS: Standard craniocaudal and mediolateral oblique views of the breast recorded using d igital acquisition and breast tomosynthesis. Read with the assistance of CAD. .[facility] - mktg Storage Administrator Version 9.2 LIMITATIONS: None. FINDINGS: BREAST LATERALITY: right No suspicious masses, suspicious calcifications or architectural distortion. No areas of concern. IMPRESSION: NEGATIVE MAMMOGRAM. BIRADS 1. BREAST DENSITY: b. There are scattered areas of fibroglandular density. BIRAD: ASSESSMENT: 1 Negative RECOMMENDATION: RECOMMENDATION: ROUTINE SCREENING. COMMENT: The patient has been notified of the results by letter per SA requirements. Additional no tification policies are in place for contacting patient with suspicious or incomplete findings. Quality ID #[id number]: The [employer] recommends an annual screening mammogram for women aged 40 years or over. This facility utilizes a reminder system to ensure that all patients receive reminder letters, and/or direct phone calls for appointments. This includes reminders for routine scr eening mammograms, diagnostic mammograms, or other Breast Imaging Interventions when appropriate. Th is patient will be placed in the appropriate reminder system. TECHNICAL DOCUMENTATION: FINDING NUMBER: (1) ASSESSMENT: (1) JOB ID: [id number] [employer]- All Rights Reserved Reading location - IP/workstation name: [email or web address]
== END ==
LOC: WI 10:55
PROVIDERS: ATTEND Family Medicine
DX: Z12.31 Encounter for screening mammogram for malignant neoplasm of breast (principal)